=== PATIENT | male | born 1995 | race Caucasian/White ===

== ENCOUNTER 2017-01-10 16:13 | Outpatient (CLI) | payer BC ==
--- NOTE | 2017-01-10 16:59 | RAD ---
CHEST TWO VIEWS: History: Cough. FINDINGS: No comparison. The cardiac silhouette and pulmonary vasculature are unremarkable. Mediastinum is mid line. There is no confluent airspace consolidation, pneumothorax or pleural fluid evident. IMPRESSION: No active cardiopulmonary abnormalities are demonstrated. POS: [facility]
== END 2017-01-10 16:14 | disposition home or self-care (01) ==
LOC: MADRAD 16:13
PROVIDERS: ATTEND Family Medicine
DX: R05 Cough (principal)
CPT/HCPCS: 71020